=== PATIENT | male | born 1995 | race Caucasian/White ===

== ENCOUNTER 2022-10-26 19:58 | Emergency (ER) | payer OTHER, SELFPAY ==
[2022-10-26] MEDS ORDERED: Dextrose 50% Abboject 50 ML SYRINGE ONE ×2 (20:27→20:37)
[2022-10-26] MEDS ORDERED: Boostrix 0.5 ML (Tdap) VIAL (>/=7 yrs of age) ONE (21:54)
== END 2022-10-26 22:17 | disposition home or self-care (01) ==
LOC: MADERS 19:58
DX: S51.811A Laceration without foreign body of right forearm, initial encounter (principal); E10.649 Type 1 diabetes mellitus with hypoglycemia without coma; I25.10 Atherosclerotic heart disease of native coronary artery without angina pectoris; F17.220 Nicotine dependence, chewing tobacco, uncomplicated; Z23 Encounter for immunization; V47.5XXA Car driver injured in collision with fixed or stationary object in traffic accident, initial encounter; Y92.410 Unspecified street and highway as the place of occurrence of the external cause
CPT/HCPCS: 36416; 90471; 90715; 96374; J7999